=== PATIENT | female | born 1965 | race Two or more races ===

== ENCOUNTER 2024-10-03 07:46 | Outpatient (CLI) | payer BC ==
[~2024-10-03] VITALS: Ht 152.4 cm; Wt 109.8 kg
[2024-10-03] MEDS: REGADENOSON 0.4 MG/5 ML SYRG IV ONE ×2 (10:11→10:17)
--- NOTE | 2024-10-10 08:45 | DVHSR ---
APPROVED REPORT Exam: Nuclear Stress Test Indication: chest pain BMI: 0 Medical History Medical History: cp, htn, murmur, obesity, hld, dm, former smoker Stress Test Details Stress Test: Pharmacologic stress testing performed using 0.4 mg of regadenoson per 5 mL given IV ov er 10 seconds. HR Resting HR: 64 bpmMax Heart Rate (APMHR): 162.182576 bpm Max HR Achieved: 73 bpmTarget HR (85% APMHR): 137.683908 bpm % of APMHR: 45.06 Recovery HR: 69 bpm BP Resting BP: 114/62 mmHg Recovery BP: 131/69 mmHg ECG Resting ECG: Sinus Rhythm Clinical Reason for Termination: Completed protocol Stress ECG Conclusion lvef 68% artifact noted anteriro wall no major ischemai noted NM EXAM: Myocardial Perfusion REST/STRESS Imaging Protocol: Rest Tc-99m/Stress Tc-99m 1 day Resting Data Rest SPECT myocardial perfusion imaging was performed in supine position 60 minutes following the int ravenous injection of 11.0 mCi of Tc-99m Sestamibi. Time of rest injection: 08:20 Date: 10/03/2024 Time of rest imagin:20 Date: 10/03/2024 Administration Route: IV Administration Site: Right Arm Pharmacologic Stress Pharmacologic stress test was performed by injecting Regadenoson 0.4 mg IV push followed by the intra venous injection of 32.4 mCi of Tc-99m Sestamibi. Time of stress injection: 10:10 Date: 10/03/2024 Time of stress imagin:10 Date: 10/03/2024 Administration Route: IV Administration Site: Right Arm Gated Stress SPECT was performed 60 minutes after stress injection. The images were gated to evaluate regional wall motion and calculate left ventricular ejection fracti on. Stress only was performed in the Supine position. Nuclear Conclusion lvef 68% artifact noted anteriro wall no major ischemai noted
== END 2024-10-03 17:00 | disposition home or self-care (01) ==
LOC: XYW 07:46
PROVIDERS: ATTEND Specialist
DX: I10 Essential (primary) hypertension (principal); R07.9 Chest pain, unspecified; E11.9 Type 2 diabetes mellitus without complications; E78.5 Hyperlipidemia, unspecified; G80.9 Cerebral palsy, unspecified; E66.9 Obesity, unspecified; Z87.891 Personal history of nicotine dependence
CPT/HCPCS: 78452; 93017; A9500; J2785